=== PATIENT | male | born 1970 | race African-American/Black ===

== ENCOUNTER 2018-01-28 12:21 | Emergency (ER) | payer SELFPAY ==
--- NOTE | 2018-01-28 13:07 | EDPHYS ---
Physician Documentation [facility] Name: Sarwat Wynn Age: 47 yrs Sex: Male : 1970 Arrival Date: 01/28/2018 Time: 12:23 Bed 17 Private MD: ED Physician Augustus Aj Historical: - Allergies: 01/28 12:30 No Known Allergies; aj1 - Home Meds: 12:30 lisinopril Oral [Active]; aj1 - PMHx: 12:30 Hypertension; aj1 - PSHx: 12:30 Hernia repair; aj1 - Immunization history:: Flu vaccine is not up to date. - Social history:: Smoking status: Patient uses tobacco products, 1 pack a week. - Ebola Screening: : Patient denies travel to an Ebola-affected area in the 21 days before illness onset. Vital Signs: 12:30 BP 142 / 88; Pulse 71; Resp 18; Temp 97.8; Pulse Ox 100% on R/A; Weight 79.38 kg (R); aj1 Height 5 ft. 9 in. (175.26 cm) (R); Pain 9/10; 12:30 Body Mass Index 25.84 (79.38 kg, 175.26 cm) aj1 MDM: 13:06 Patient medically screened. kdr Administered Medications: No medications were administered Disposition: 01/28/18 13:06 Discharged to Home. Impression: Inguinal hernia, Unilateral inguinal hernia, without obstruction or gangrene. - Condition is Stable. - Discharge Instructions: Inguinal Hernia, Adult, [id number], Hernia, Adult, [id number]. - Medication Reconciliation Form, Thank You Letter, Work release form form. - Follow up: Private Physician; When: 2 - 3 days; Reason: If symptoms return, Further diagnostic work-up, Recheck today's complaints, Continuance of care, Re-evaluation by your physician. Follow up: Hugh Dyer MD; When: 2 - 3 days; Reason: If symptoms return, Further diagnostic work-up, Recheck today's complaints, Continuance of care, Re-evaluation by your physician. - Problem is an acute exacerbation. - Symptoms are resolved. Addendum: 02/11/2018 23:09 Addendum: CC: Right inguinal pain - possible hernia HPI: The patient states that he k dr felt a pop and then he had a lot of pain and burning in his right groin. He had a prior hernia repair about 30 years ago. . Addendum: ROS: Const: No fever, chills or weight loss, Eyes: no visual changes or c/o, Neck: no pain or injury, CV: no CP or palpitations, Resp: no SOB, cough or congestion, Abd: no n/v/d or pain except for in the right groin where there is a hernia the size of a small egg that is palpable. Back: no pain or injury, : no pain or bleeding, MS/Ext: no pain, injury, swelling, tingling, Skin: no lacerations, pain, injury, skin turgor good, Neuro: CN grossly intact and no other deficits, Psych: Appropriate for age, Allergy/Immunology: no rashes or other s/s, Endo: no evidence of polyuria, polydipsia, temperature control or other s/s . Addendum: Exam: Const: WDWN BM in mild distress, Head/Face: no injury, pain or deformity, Eyes: PERRLA, ENT: no pain, injury or bleeding, Neck: no pain, injury or deformity, full ROM, Chest/Axilla: No pain, injury or deformity, CV: no rubs, gallops, murmurs, regular rate, Resp: CTAB, regular rate, Abd/GI: soft, NT, BS present in all quads and normal, 2x4 cm mass noted in right groin that is tender to touch. Back: no injury or deformity, full ROM, MS/Extremity: no injury or deformity, FROM, distal pulses good and equal, Skin: no rashes, ecchymosis skin turgor good, Neuro: CN grossly intact, no other neuro deficits, Psych: appropriate for age, no SI/HI, no depression Procedure: With patient in trendelenberg, the right groin mass was messaged and slowly worked back into the abdomen. The patient tolerated well. . Addendum: MDM (Discharge) All VS and nursing notes reviewed. The patient was counseled on the results and need for follow-up. The patient was discharged in stable condition. They were happy with the care they received and the plan for d/c and follow-up. The patient was given instruction to call Dr. Dyer whom I had discussed the case. . Signatures: Nataliia Hernández, RN RN aj1 Augustus Aj MD MD kdr Christofer, Amado, SUPERVISOR COAL HANDLING SUPERVISOR COAL HANDLING em Corrections: (The following items were deleted from the chart) 01/28 13:07 13:06 01/28/2018 13:06 Discharged to Home. Impression: Inguinal hernia; Unilateral kdr inguinal hernia, without obstruction or gangrene. Condition is Stable. Forms are Medication Reconciliation Form, Thank You Letter, Antibiotic Education, Prescription Opioid Use. Follow up: Private Physician; When: 2 - 3 days; Reason: If symptoms return, Further diagnostic work-up, Recheck today's complaints, Continuance of care, Re-evaluation by your physician. Problem is an acute exacerbation. Symptoms are resolved. kdr 13:31 13:07 01/28/2018 13:06 Discharged to Home. Impression: Inguinal hernia; Unilateral em inguinal hernia, without obstruction or gangrene. Condition is Stable. Forms are Medication Reconciliation Form, Thank You Letter, Antibiotic Education, Prescription Opioid Use. Follow up: Private Physician; When: 2 - 3 days; Reason: If symptoms return, Further diagnostic work-up, Recheck today's complaints, Continuance of care, Re-evaluation by your physician. Follow up: Dr. Hugh Dyer; When: 2 - 3 days; Reason: If symptoms return, Further diagnostic work-up, Recheck today's complaints, Continuance of care, Re-evaluation by your physician. Problem is an acute exacerbation. Symptoms are resolved. kdr
--- NOTE | 2018-01-28 13:07 | ER ---
Nurse's Notes [facility] Name: Sarwat Wynn Age: 47 yrs Sex: Male : 1970 Arrival Date: 01/28/2018 Time: 12:23 Bed 17 Private MD: Diagnosis: Inguinal hernia;Unilateral inguinal hernia, without obstruction or gangrene Presentation: 01/28 12:28 Presenting complaint: Patient states: "I have a massive hernia, and I feel like my down aj1 there is about to explode" Reports testicular and suprapubic pain. States that he has an inguinal hernia that was repaired 30 years ago, but he felt it pop and it feels like it did before when he had to have it fixed. Denies N/V/D. Denies fever. Transition of care: patient was not received from another setting of care. Onset of symptoms was December 2017. Risk Assessment: Do you want to hurt yourself or someone else? Patient reports no desire to harm self or others. Initial Sepsis Screen: Does the patient meet any 2 criteria? No. Patient's initial sepsis screen is negative. Does the patient have a suspected source of infection? Yes: Acute abdominal pain. Care prior to arrival: None. 12:28 Method Of Arrival: Ambulatory aj1 12:28 Acuity: LUPE 3 aj1 Triage Assessment: 12:30 General: Appears in no apparent distress. uncomfortable, Behavior is calm, cooperative, aj1 appropriate for age. Pain: Complains of pain in suprapubic area and pelvis Pain currently is 9 out of 10 on a pain scale. Neuro: Level of Consciousness is awake, alert, obeys commands. Cardiovascular: Patient's skin is warm and dry. Respiratory: Airway is patent Respiratory effort is even, unlabored, Respiratory pattern is regular, symmetrical. GI: Patient currently denies diarrhea, nausea, vomiting. Historical: - Allergies: 12:30 No Known Allergies; aj1 - Home Meds: 12:30 lisinopril Oral [Active]; aj1 - PMHx: 12:30 Hypertension; aj1 - PSHx: 12:30 Hernia repair; aj1 - Immunization history:: Flu vaccine is not up to date. - Social history:: Smoking status: Patient uses tobacco products, 1 pack a week. - Ebola Screening: : Patient denies travel to an Ebola-affected area in the 21 days before illness onset. Screenin:00 Abuse screen: Denies threats or abuse. Nutritional screening: No deficits noted. em Tuberculosis screening: No symptoms or risk factors identified. Fall Risk None identified. Assessment: 13:00 General: Appears in no apparent distress. uncomfortable, Behavior is calm, cooperative. em Pain: Complains of pain in abdomen and suprapubic area. Neuro: Level of Consciousness is awake, alert, obeys commands, Oriented to person, place, time, situation. Cardiovascular: Capillary refill < 3 seconds Patient's skin is warm and dry. Respiratory: Airway is patent Respiratory effort is even, unlabored, Respiratory pattern is regular, symmetrical. GI: Abdomen is round Bowel sounds present X 4 quads. Abd is soft Abdomen is tender to palpation X 4 quads. : No signs and/or symptoms were reported regarding the genitourinary system. EENT: No signs and/or symptoms were reported regarding the EENT system. Derm: Skin is intact, Skin is pink, warm \\T\\ dry. Musculoskeletal: Range of motion: intact in all extremities. 13:15 General: The previous assessment is accurate, call light remains within reach. . ss Vital Signs: 12:30 BP 142 / 88; Pulse 71; Resp 18; Temp 97.8; Pulse Ox 100% on R/A; Weight 79.38 kg (R); aj1 Height 5 ft. 9 in. (175.26 cm) (R); Pain 9/10; 12:30 Body Mass Index 25.84 (79.38 kg, 175.26 cm) aj1 ED Course: 12:23 Patient arrived in ED. tw3 12:30 Triage completed. aj1 12:30 Arm band placed on Patient placed in an exam room. aj1 12:42 Augustus Aj MD is Attending Physician. kdr 13:00 Patient has correct armband on for positive identification. Bed in low position. Call em light in reach. 13:00 No provider procedures requiring assistance completed. Patient did not have IV access em during this emergency room visit. 13:07 Hugh Dyer MD is Referral Physician. kdr 13:23 Amado Beaulieu LVN is Primary Nurse. em Administered Medications: No medications were administered Outcome: 13:06 Discharge ordered by . kdr 13:27 Discharged to home ambulatory. em 13:27 Condition: good 13:27 Discharge instructions given to patient, Instructed on discharge instructions, follow up and referral plans. Demonstrated understanding of instructions, follow-up care. 13:31 Patient left the ED. em Signatures: Nataliia Hernández RN RN aj1 Augustus Aj MD MD kdr Amado Beaulieu, FILTER PRESS TENDER FILTER PRESS TENDER em Irene Jones RN RN ss [place], Brit tw3
== END 2018-01-28 13:31 | disposition home or self-care (01) ==
LOC: ER 12:21
DX: K40.90 Unilateral inguinal hernia, without obstruction or gangrene, not specified as recurrent (principal); I10 Essential (primary) hypertension; Z72.0 Tobacco use
CPT/HCPCS: 99281

== ENCOUNTER 2018-08-04 10:01 | Emergency (ER) | payer BC, SELFPAY ==
--- NOTE | 2018-08-04 10:38 | EDPHYS ---
Physician Documentation [facility] Name: Sarwat Wynn Age: 48 yrs Sex: Male : 1970 Arrival Date: 08/04/2018 Time: 10:04 Bed 20 Private MD: ED Physician Matthew Coates HPI: 08/04 10:45 This 48 yrs old Black Male presents to ER via Ambulatory with complaints of Hernia. jr8 10:46 The patient presents with scrotal pain, of the right side. Onset: The symptoms/episode jr8 began/occurred gradually, 1 year(s) ago. Modifying factors: The symptoms are alleviated by supine position, the symptoms are aggravated by movement, standing. Associated signs and symptoms: The patient has no apparent associated signs or symptoms. Severity of symptoms: At their worst the symptoms were mild, in the emergency department the symptoms are unchanged. The patient has experienced a previous episode. The patient has not recently seen a physician. 10:47 Patient had inguinal hernia repair in his 20s. Stated that about a year ago while jr8 working felt pop in same region. Since then has had hernia that goes in and out. Came to ED because his insurance is about to laps . Historical: - Allergies: 10:26 No Known Allergies; iw - Home Meds: 10:26 None [Active]; iw - PMHx: 10:26 Hypertension; iw - PSHx: 10:26 Hernia repair; iw - Immunization history:: Adult Immunizations not up to date. - Social history:: Smoking status: Patient uses tobacco products, smokes one-half pack cigarettes per day. - Ebola Screening: : Patient negative for fever greater than or equal to 101.5 degrees Fahrenheit, and additional compatible Ebola Virus Disease symptoms Patient denies exposure to infectious person Patient denies travel to an Ebola-affected area in the 21 days before illness onset No symptoms or risks identified at this time. ROS: 10:47 Eyes: Negative for injury, pain, redness, and discharge, ENT: Negative for injury, jr8 pain, and discharge, Neck: Negative for injury, pain, and swelling, Cardiovascular: Negative for chest pain, palpitations, and edema, Respiratory: Negative for shortness of breath, cough, wheezing, and pleuritic chest pain, Abdomen/GI: Negative for abdominal pain, nausea, vomiting, diarrhea, and constipation, Back: Negative for injury and pain, MS/Extremity: Negative for injury and deformity, Skin: Negative for injury, rash, and discoloration, Neuro: Negative for headache, weakness, numbness, tingling, and seizure. 10:47 : Positive for testicular pain Exam: 10:47 Eyes: Pupils equal round and reactive to light, extra-ocular motions intact. Lids and jr8 lashes normal. Conjunctiva and sclera are non-icteric and not injected. Cornea within normal limits. Periorbital areas with no swelling, redness, or edema. ENT: Nares patent. No nasal discharge, no septal abnormalities noted. Tympanic membranes are normal and external auditory canals are clear. Oropharynx with no redness, swelling, or masses, exudates, or evidence of obstruction, uvula midline. Mucous membranes moist. Neck: Trachea midline, no thyromegaly or masses palpated, and no cervical lymphadenopathy. Supple, full range of motion without nuchal rigidity, or vertebral point tenderness. No Meningismus. Cardiovascular: Regular rate and rhythm with a normal S1 and S2. No gallops, murmurs, or rubs. Normal PMI, no JVD. No pulse deficits. Respiratory: Lungs have equal breath sounds bilaterally, clear to auscultation and percussion. No rales, rhonchi or wheezes noted. No increased work of breathing, no retractions or nasal flaring. Back: No spinal tenderness. No costovertebral tenderness. Full range of motion. Skin: Warm, dry with normal turgor. Normal color with no rashes, no lesions, and no evidence of cellulitis. MS/ Extremity: Pulses equal, no cyanosis. Neurovascular intact. Full, normal range of motion. Neuro: Awake and alert, GCS 15, oriented to person, place, time, and situation. Cranial nerves II-XII grossly intact. Motor strength 5/5 in all extremities. Sensory grossly intact. Cerebellar exam normal. Normal gait. 10:47 Abdomen/GI: Inspection: abdomen appears normal, Bowel sounds: active, all quadrants, Palpation: abdomen is soft and non-tender, in all quadrants, Liver: no appreciated palpable abnormalities, Hernia: noted in the right inguinal area, incarceration, is not appreciated, tenderness, that is mild, able to reduce. Vital Signs: 10:26 BP 148 / 84; Pulse 62; Resp 16; Temp 98.3; Pulse Ox 100% on R/A; Weight 81.65 kg; iw Height 5 ft. 9 in. (175.26 cm); Pain 8/10; 10:26 Body Mass Index 26.58 (81.65 kg, 175.26 cm) iw Procedures: 10:47 Performed Reduction of Hernia. Right inguinal hernia reduced with mild pressure and jr8 manipulation of content in side the hernia. Was able to be completely reduced . MDM: 10:23 Patient medically screened. jr8 10:36 Data reviewed: vital signs, nurses notes, and as a result, I will discharge patient. jr8 Data interpreted: Pulse oximetry: on room air is 100 %. Interpretation: normal. Counseling: I had a detailed discussion with the patient and/or guardian regarding: the historical points, exam findings, and any diagnostic results supporting the discharge/admit diagnosis, the need for outpatient follow up, a general surgeon, to return to the emergency department if symptoms worsen or persist or if there are any questions or concerns that arise at home. Physician consultation: Jonn Ingram MD was called at 10:36, was contacted at 10:36, To have patient call his office today and schedule to be seen first thing on Tuesday morning for hernia repair . Administered Medications: No medications were administered Disposition: 17:16 Co-signature as Attending Physician, Matthew Coates MD. ma2 Disposition: 08/04/18 10:38 Discharged to Home. Impression: Direct Hernia right inguinal canal . - Condition is Stable. - Discharge Instructions: Hernia, Adult, Inguinal Hernia, Adult. - Medication Reconciliation Form, Thank You Letter, Antibiotic Education, Prescription Opioid Use form. - Follow up: Jonn Ingram MD; When: 2 - 3 days; Reason: Recheck today's complaints, Continuance of care, Re-evaluation by your physician. - Problem is new. - Symptoms have improved. Signatures: Angie Berg RN RN iw Joseph Hernandez PA PA jr8 Matthew Coates MD MD ma2 Corrections: (The following items were deleted from the chart) 10:42 10:38 08/04/2018 10:38 Discharged to Home. Impression: Direct Hernia right inguinal iw canal . Condition is Stable. Forms are Medication Reconciliation Form, Thank You Letter, Antibiotic Education, Prescription Opioid Use. Follow up: Jonn Ingram; When: 2 - 3 days; Reason: Recheck today's complaints, Continuance of care, Re-evaluation by your physician. Problem is new. Symptoms have improved. jr8
--- NOTE | 2018-08-04 10:38 | ER ---
Nurse's Notes [facility] Name: Sarwat Wynn Age: 48 yrs Sex: Male : 1970 Arrival Date: 08/04/2018 Time: 10:04 Bed 20 Private MD: Diagnosis: Direct Hernia right inguinal canal Presentation: 08/04 10:23 Presenting complaint: Patient states: right inguinal hernia repaired in his 's, iw hernia popped back out one year ago while at work, has been having pain but hasn't followed up with anyone, states his insurance is expiring this month and wants to try to get it fixed now. Transition of care: patient was not received from another setting of care. Onset of symptoms was July 2017. Risk Assessment: Do you want to hurt yourself or someone else? Patient reports no desire to harm self or others. Initial Sepsis Screen: Does the patient meet any 2 criteria? No. Patient's initial sepsis screen is negative. Does the patient have a suspected source of infection? No. Patient's initial sepsis screen is negative. Care prior to arrival: None. 10:23 Method Of Arrival: Ambulatory iw 10:23 Acuity: LUPE 4 iw Historical: - Allergies: 10:26 No Known Allergies; iw - Home Meds: 10:26 None [Active]; iw - PMHx: 10:26 Hypertension; iw - PSHx: 10:26 Hernia repair; iw - Immunization history:: Adult Immunizations not up to date. - Social history:: Smoking status: Patient uses tobacco products, smokes one-half pack cigarettes per day. - Ebola Screening: : Patient negative for fever greater than or equal to 101.5 degrees Fahrenheit, and additional compatible Ebola Virus Disease symptoms Patient denies exposure to infectious person Patient denies travel to an Ebola-affected area in the 21 days before illness onset No symptoms or risks identified at this time. Screenin:40 Abuse screen: Denies threats or abuse. Denies injuries from another. Nutritional iw screening: No deficits noted. Tuberculosis screening: No symptoms or risk factors identified. Fall Risk None identified. Assessment: 10:39 General: Appears in no apparent distress. Behavior is calm, cooperative. Pain: iw Complains of pain in right inguinal area Pain currently is 8 out of 10 on a pain scale. Neuro: Level of Consciousness is awake, alert, obeys commands, Oriented to person, place, time, situation, Moves all extremities. Cardiovascular: Patient's skin is warm and dry. Respiratory: Respiratory effort is even, unlabored, Respiratory pattern is regular. GI: Abdomen is flat, non-distended. : Reports pain in right inguinal area. Derm: Skin is intact, is healthy with good turgor. Musculoskeletal: Range of motion: intact in all extremities. Vital Signs: 10:26 BP 148 / 84; Pulse 62; Resp 16; Temp 98.3; Pulse Ox 100% on R/A; Weight 81.65 kg; iw Height 5 ft. 9 in. (175.26 cm); Pain 8/10; 10:26 Body Mass Index 26.58 (81.65 kg, 175.26 cm) iw ED Course: 10:04 Patient arrived in ED. rg4 10:22 Joseph Hernandez PA is PHCP. jr8 10:22 Matthew Coates MD is Attending Physician. jr8 10:24 Amado Beaulieu LVN is Primary Nurse. em 10:25 Triage completed. iw 10:26 Arm band placed on. iw 10:37 Jonn Ingram MD is Referral Physician. jr8 10:40 Patient has correct armband on for positive identification. iw 10:40 No provider procedures requiring assistance completed. Patient did not have IV access iw during this emergency room visit. 10:41 Primary Nurse role handed off by Amado Beaulieu LVN iw 10:41 Angie Berg RN is Primary Nurse. iw Administered Medications: No medications were administered Outcome: 10:38 Discharge ordered by . jr8 10:40 Discharged to home ambulatory. iw 10:40 Condition: good 10:40 Discharge instructions given to patient, Instructed on discharge instructions, follow up and referral plans. pt is to follow up with Dr. Ingram in his office today Demonstrated understanding of instructions, follow-up care. 10:42 Patient left the ED. iw Signatures: Amado Beaulieu LVN LVN em Angie Berg, TERRY RN iw Joseph Hernandez PA PA jr8 Valeria Markham rg4
== END 2018-08-04 10:42 | disposition home or self-care (01) ==
LOC: ER 10:01
DX: K40.90 Unilateral inguinal hernia, without obstruction or gangrene, not specified as recurrent (principal); F17.210 Nicotine dependence, cigarettes, uncomplicated
CPT/HCPCS: 99281

== ENCOUNTER 2018-08-07 09:00 | Day surgery (SDC) | payer BC ==
[2018-08-07] MEDS ORDERED: Ringers Lactate 1,000 ML IV ONE ×2 (09:17→13:46)
[2018-08-07] MEDS ORDERED: CEFAZOLIN/SWI 1gm 1 GM/10 ML SYR ONE (09:17)
[2018-08-07] MEDS ORDERED: MIDAZOLAM HCL 2 MG/2 ML INJ ONE (09:27)
[2018-08-07] MEDS ORDERED: FENTANYL CITR 100 MCG/2 ML ONE (09:27)
[2018-08-07] MEDS ORDERED: PROPOFOL 200 MG/20 ML VIAL IV ONE (09:27)
[2018-08-07] MEDS ORDERED: LIDOCAINE 2% MPF 5 ML VIAL ONE (09:27)
[2018-08-07] MEDS ORDERED: ROCURONIUM 50 MG/5 ML VIAL IV ONE (09:29)
[2018-08-07] MEDS ORDERED: BUPIVACA 0.25%/EPI 0.0005% MDV 50 ML VIAL ONE (10:10)
--- NOTE | 2018-08-07 12:23 | P.OP ---
Outside Sales Representative Insurance: [employer] Preoperative diagnosis: Right inguinal hernia Postoperative diagnosis: Right inguinal hernia Primary procedure: Open Right inguinal hernia repair with plug and patch Anesthesia: GETA + Local Estimated blood loss: <2cc Specimen: Hernia sack, cord lipoma Findings: very large Right inguinal hernia Complications: None Implants: Perfix Bard large plug and patch Transferred to: Recovery Room Condition: Good
[2018-08-07] MEDS ORDERED: KETOROLAC 30 MG/ML INJ ONE (12:33)
[2018-08-07] MEDS ORDERED: MORPHINE 10 MG/ML VIAL ONE (12:38)
[2018-08-07] MEDS: HYDROMORPHONE HCL 1 MG/ML INJ ONE ×2 (12:48→12:59)
[2018-08-07] MEDS ORDERED: HYDROCODONE/APAP 7.5/325 MG TAB ONE (13:55)
[2018-08-07] MEDS ORDERED: ONDANSETRON 4 MG/2 ML VIAL ONE (13:56)
--- NOTE | 2018-08-07 23:52 | OP ---
Date of Procedure: 08/07/2018 Surgeon: Jonn Ingram MD, Postoperative Diagnosis: Right inguinal hernia. Postoperative Diagnosis: Right inguinal hernia. Procedure Performed: An open right inguinal hernia repair with plug and patch system. Anesthesia: General endotracheal plus local with 0.25% Marcaine. Estimated Blood Loss: Less than 2 cc. Specimens: Hernia sac and cord lipoma. Findings: Very large right inguinal hernia. Complications: None. Implants: [employer] PerFix large plug and patch repair system. Disposition: Returned to recovery room in good condition. Procedure In Detail: After informed consent was obtained, the patient was brought to the operating r oom, prepped and draped in the usual sterile fashion. After adequate anesthesia was achieved, a righ t inguinal incision was made down through subcutaneous tissues. Electrocautery was used to dissect d own through Camper's fat and Cosme's fascia to expose the external oblique aponeurosis. This was op ened with a scalpel blade incision and tenotomy scissors were used to open the external oblique apone urosis down to the inguinal ring. After this was opened up in its entirety, the spermatic cord and s tructures were appreciated at this time. However, they were firmly adherent to a very large indirect inguinal hernia. This defect was quite large and as such I opted for a [employer] PerFix large hernia plu g and patch repair system. After encircling the spermatic cord and structures, I dissected the herni a sac free from the spermatic cord and structures, which were maintained throughout the procedure. A dditionally, the patient had what appeared to be varicocele as well, which was kept protected through out as it was a fairly small varicocele. After dissection continued down, the hernia sac was complet adrian from the spermatic cord and structures. The hernia sac was opened and ligated and sent off for pathologic examination. Additionally, cord lipoma was removed from the spermatic cord and s tructures and sent off for pathologic examination. The large plug was then brought into the field, h ydrated appropriately, and secured within the preperitoneal space using interrupted 0 PDS sutures wit h good approximation of the tissues. The remnant hernia sac was then ligated over the top of this us ing a running 3-0 Vicryl suture. I then sized the hernia patch appropriately and placed it under the spermatic cord and structures to reconstitute the deep inguinal ring. It was secured on the medial aspect of the pubic tubercle into the conjoined tendon and lateral and medial shelving edges were sec ured to the mesh using the same said 0 PDS suture and the deep inguinal ring was reconstituted after sizing the mesh appropriately. The area was copiously irrigated and the external oblique aponeurosis was closed over the top of this defect and the Camper's fat and Cosme's fascia were closed en bloc using a 3-0 Vicryl in a running fashion, which was also used for the external oblique aponeurosis. A t this point, the skin incisions were then copiously irrigated and the skin was closed using a 4-0 Mo nocryl in a running fashion. Dermabond was placed over top. The patient tolerated the procedure wel l without evidence of complications, transferred to PACU in good condition. All counts were correct at the end of the case. CARMEN/ETHAN Voice ID: [id number] Report ID: [id number]
== END 2018-08-07 14:50 | disposition home or self-care (01) ==
LOC: OR 09:00
PROVIDERS: ATTEND Surgery
PROC: 0YU50JZ Supplement Right Inguinal Region with Synthetic Substitute, Open Approach (ICD-10-PCS; principal; 2018-08-07 10:30)
DX: K40.91 Unilateral inguinal hernia, without obstruction or gangrene, recurrent (principal); D17.6 Benign lipomatous neoplasm of spermatic cord; I10 Essential (primary) hypertension; F17.210 Nicotine dependence, cigarettes, uncomplicated
CPT/HCPCS: 88302; J0690; J1170; J2250; J2405; J2704; J3010